=== PATIENT | female | born 1970 | race Caucasian/White ===

== ENCOUNTER 2018-09-03 21:42 | Emergency (ER) | payer BC, MEDICAID, OTHER ==
[~2018-09-03] VITALS: Ht 154.9 cm; Wt 60.4 kg
[2018-09-03 21:46] VITALS: Ht 154.9 cm; Wt 60.4 kg
[2018-09-04] MEDS ORDERED: SOD CHLORIDE 0.9% 500 ML IV STA (00:23)
[2018-09-04] MEDS ORDERED: morphine 4 MG/ML VIAL IV STA (00:23)
[2018-09-04] MEDS ORDERED: ONDANSETRON 4 MG INJ IV STA (00:23)
[2018-09-04] MEDS ORDERED: LANT3I SC (02:48)
[2018-09-04] MEDS ORDERED: METF100010 PO (02:48)
[2018-09-04] MEDS ORDERED: GLIP-160 PO (02:48)
--- NOTE | 2018-09-04 02:48 | ERD ---
ER Documentation Chief Complaint Chief Complaint c/o RUQ pain and abdominal distension today. denies n/v/d Hx SBO 2009 HPI This a 48-year-old male complains of right upper quadrant abdominal pain and distention today. She denies nausea vomiting diarrhea. She has a history of small bowel obstruction 2008. She said her last bowel movement was 2 days ago. Denies fevers or chills. Denies any other current complaints. ROS All systems reviewed and are negative except as per history of present illness. Allergies Allergies: Coded Allergies: No Known Allergy (Unverified , 09/04/18) PMhx/Soc History of Surgery: Yes (, BIOPSY) Anesthesia Reaction: No Hx Neurological Disorder: No Hx Respiratory Disorders: No Hx Cardiac Disorders: No Hx Psychiatric Problems: No Hx Miscellaneous Medical Probl: No Hx Alcohol Use: No Hx Substance Use: No Hx Tobacco Use: No Smoking Status: Never smoker Physical Exam Vitals Vital Signs Date Temp Pulse Resp B/P (MAP) Pulse Ox O2 O2 Flow FiO2 Time Delivery Rate 09/04/18 61 12 92/52 (65) 96 Room Air 02:16 09/04/18 69 19 99/54 (69) 99 Room Air 00:38 09/03/18 97.9 80 22 135/59 98 21:46 (84) Physical Exam Const: No acute distress Head: Atraumatic Eyes: Normal Conjunctiva ENT: Normal External Ears, Nose and Mouth. Neck: Full range of motion. No meningismus. Resp: Clear to auscultation bilaterally Cardio: Regular rate and rhythm, no murmurs Abd: Soft, non tender, non distended. Normal bowel sounds Skin: No petechiae or rashes Back: No midline or flank tenderness Ext: No cyanosis, or edema Neur: Awake and alert Psych: Normal Mood and Affect Result Diagram: 09/04/18 0029 09/04/18 0029 Results 24 hrs Laboratory Tests Test 09/04/18 00:29 White Blood Count 6.1 10^3/ul Red Blood Count 4.75 10^6/ul Hemoglobin 13.5 g/dl Hematocrit 41.3 % Mean Corpuscular Volume 86.9 fl Mean Corpuscular Hemoglobin 28.4 pg Mean Corpuscular Hemoglobin Concent 32.7 g/dl Red Cell Distribution Width 12.5 % Platelet Count 331 10^3/UL Mean Platelet Volume 9.8 fl Immature Granulocytes % 0.300 % Neutrophils % 51.6 % Lymphocytes % 35.0 % Monocytes % 7.9 % Eosinophils % 4.5 % Basophils % 0.7 % Nucleated Red Blood Cells % 0.0 /100WBC Immature Granulocytes # 0.020 10^3/ul Neutrophils # 3.1 10^3/ul Lymphocytes # 2.1 10^3/ul Monocytes # 0.5 10^3/ul Eosinophils # 0.3 10^3/ul Basophils # 0.0 10^3/ul Nucleated Red Blood Cells # 0.0 10^3/ul Urine Color STRAW Urine Clarity CLEAR Urine pH 6.0 Urine Specific [place] 1.042 Urine Ketones NEGATIVE mg/dL Urine Nitrite NEGATIVE mg/dL Urine Bilirubin NEGATIVE mg/dL Urine Urobilinogen NEGATIVE mg/dL Urine Leukocyte Esterase NEGATIVE Deyvi/ul Urine Hemoglobin NEGATIVE mg/dL Urine Glucose 3+ mg/dL Urine Total Protein NEGATIVE mg/dl Urine Test NEGATIVE Sodium Level 137 mmol/L Potassium Level 4.4 mmol/L Chloride Level 100 mmol/L Carbon Dioxide Level 28 mmol/L Anion Gap 9 Blood Urea Nitrogen 16 mg/dl Creatinine 0.50 mg/dl Est Glomerular Filtrat Rate mL/min > 60 mL/min Glucose Level 424 mg/dl Calcium Level 9.5 mg/dl Total Bilirubin 0.6 mg/dl Direct Bilirubin 0.00 mg/dl Indirect Bilirubin 0.6 mg/dl Aspartate Amino Transf (AST/SGOT) 16 IU/L Alanine Aminotransferase (ALT/SGPT) 25 IU/L Alkaline Phosphatase 171 IU/L Total Protein 8.3 g/dl Albumin 4.3 g/dl Globulin 4.00 g/dl Albumin/Globulin Ratio 1.07 Lipase 74 U/L Current Medications Medications Dose Sig/Frank Start Time Status Last (Trade) Ordered Route PRN Stop Time Admin Dose Reason Admin Sodium 500 ml @ Q1H STAT 09/04/18 DC 09/04/18 Chloride 500 mls/hr IV 00:09/04/18 00:42 01:22 Morphine 4 mg ONCE STAT 09/04/18 DC 09/04/18 Sulfate IV 00:09/04/18 00:42 (morphine) 00:24 Ondansetron 4 mg ONCE STAT 09/04/18 DC 09/04/18 HCl (Zofran IV 00:09/04/18 00:42 Inj) 00:24 Procedures/MDM Medical decision making: This is a very pleasant patient has evidence of constipation on CAT scan. At this point is clinically stable for trial of outpatient management. Patient's gastrointestinal symptoms have stabilized while in the department. No evidence of severe dehydration, sepsis, or surgical abdomen. Extensive discussion with family and patient that occult disease cannot be ruled out. 8 hour recheck for repeat abdominal exam is planned. Departure Diagnosis: Primary Impression: Abdominal pain Abdominal location: generalized Qualified Codes: R10.84 - Generalized abdominal pain Condition: Stable Patient Instructions: Abdominal Pain, Unknown Cause, (Female), Constipation (Adult) MIGUEL PRESTON Sep 04, 2018 02:48
[2018-09-04] MEDS ORDERED: DICY10CA40 PO (02:49)
[2018-09-04] MEDS ORDERED: DOCU-144 PO (02:49)
[2018-09-04 03:54] VITALS: BP 101/68; PULSE 60; RESP 19
== END 2018-09-04 03:57 | disposition home or self-care (01) ==
LOC: E/R 21:42
DX: R10.84 Generalized abdominal pain (principal)
CPT/HCPCS: 36415; 74176; 80053; 81003; 83690; 84703; 85025; 96374; 96375; J2270; J2405; J7040; Z7502